=== PATIENT | female | born 1985 ===

== ENCOUNTER 2016-11-24 10:26 | Emergency (ER) | payer SELFPAY ==
--- NOTE | 2016-11-24 11:38 | UC ---
Throat Pain/Nasal Frandy HPI - HPI Summary HPI Summary: LAST NIGHT BEGAN HAVING SORE THROAT AND REDNESS. NO FEVER. NO COUGH. NO SINUS CONGESTION. NO RASH. NO ABDOMINAL PAIN. HAS HAD STREP THROAT SEVERAL TIMES IN THE PAST. - History of Current Complaint Hx Obtained From: Patient Hx Last Menstrual Period: 11/01/16 Onset/Duration: Gradual Onset, Lasting Hours, Still Present Severity: Mild Cough: None Associated Signs & Symptoms: Positive: Hoarseness. Negative: Sinus Discomfort, Nasal Discharge, Fever <Mann Wilkins - Last Filed: 11/24/16 11:35> <Yanira Montaño - Last Filed: 11/24/16 12:43> - History of Current Complaint Chief Complaint: UCRespiratory Stated Complaint: THROAT PAIN Time Seen by Provider: 11/24/16 11:12 PMH/Surg Hx/FS Hx/Imm Hx Previously Healthy: Yes - Surgical History Surgical History: None - Family History Known Family History: Negative: Respiratory Disease - Social History Occupation: Employed Full-time Lives: With Family Alcohol Use: Occasionally Substance Use Type: None Smoking Status (MU): Heavy Every Day Tobacco Smoker <FrankyMann - Last Filed: 11/24/16 11:35> Review of Systems Constitutional: Negative Skin: Negative Eyes: Negative ENT: Sore Throat Respiratory: Negative Cardiovascular: Negative Gastrointestinal: Negative Genitourinary: Negative Motor: Negative Neurovascular: Negative Musculoskeletal: Negative Neurological: Negative Psychological: Negative All Other Systems Reviewed And Are Negative: Yes <FrankyMann - Last Filed: 11/24/16 11:35> Physical Exam Triage Information Reviewed: Yes Appearance: Well-Appearing, No Pain Distress, Well-Nourished Vital Signs: Initial Vital Signs Temp 96.6 F 11/24/16 10:28 Pulse 103 11/24/16 10:28 Resp 18 11/24/16 10:28 BP 116/67 11/24/16 10:28 Pulse Ox 99 11/24/16 10:28 Vital Signs Reviewed: Yes Eye Exam: Normal ENT: Positive: Hearing grossly normal, Pharyngeal erythema, TMs normal Dental Exam: Normal Neck exam: Normal Neck: Positive: Supple, Nontender, No Lymphadenopathy Respiratory Exam: Normal Respiratory: Positive: Chest non-tender, Lungs clear, Normal breath sounds, No respiratory distress Cardiovascular Exam: Normal Cardiovascular: Positive: RRR, No Murmur, Pulses Normal Abdominal Exam: Normal Musculoskeletal Exam: Normal Musculoskeletal: Positive: Strength Intact, ROM Intact Neurological Exam: Normal Psychological Exam: Normal Skin Exam: Normal <Mann Wilkins - Last Filed: 11/24/16 11:35> Vital Signs: Initial Vital Signs Temp 96.6 F 11/24/16 10:28 Pulse 103 11/24/16 10:28 Resp 18 11/24/16 10:28 BP 116/67 11/24/16 10:28 Pulse Ox 99 11/24/16 10:28 <Yanira Montaño - Last Filed: 11/24/16 12:43> Throat Pain/Nasal Course/Dx - Differential Dx/Diagnosis Differential Diagnosis/HQI/PQRI: Pharyngitis, Tonsillitis, URI Provider Diagnoses: PHARYNGITIS <Mann Wilkins - Last Filed: 11/24/16 11:35> Discharge <Mann Wilkins - Last Filed: 11/24/16 11:35> <Yanira Montaño - Last Filed: 11/24/16 12:43> - Discharge Plan Condition: Stable Disposition: HOME Patient Education Materials: Pharyngitis (ED) Referrals: [facility] [Outside] No Primary Care Phys,NOPCP [Primary Care Provider] - Attestation Statement User Type: Provider - I was available for consult. This patient was seen by the GUSTAVO. The patient was not presented to, seen by, or examined by me. -Janie <Yanira Montaño - Last Filed: 11/24/16 12:43>
== END 2016-11-24 11:40 | disposition home or self-care (01) ==
LOC: UCEAST 10:26
DX: J02.9 Acute pharyngitis, unspecified (principal); F17.210 Nicotine dependence, cigarettes, uncomplicated
CPT/HCPCS: 87651; 99201; G0463

== ENCOUNTER 2017-03-28 14:29 | Emergency (ER) | payer OTHER ==
--- NOTE | 2017-03-28 14:35 | UC ---
Throat Pain/Nasal Frandy HPI - HPI Summary HPI Summary: 31 year old female presents with complains of sore throat x 2 days. - History of Current Complaint Stated Complaint: SORE THROAT Time Seen by Provider: 03/28/17 14:35 Hx Obtained From: Patient Hx Last Menstrual Period: 11/01/16 Onset/Duration: Sudden Onset Severity: Moderate Pain Scale Used: 0-10 Numeric - 4 - Allergies/Home Medications Allergies/Adverse Reactions: Allergies Allergy/AdvReac Type Severity Reaction Status Date / Time No Known Allergies Allergy Verified 03/28/17 14:43 Home Medications: Home Medications Ibuprofen TAB* [Advil TAB*] 400 mg PO Q6H PRN 03/28/17 [History Confirmed ] PMH/Surg Hx/FS Hx/Imm Hx Previously Healthy: Yes - Surgical History Surgical History: None - Family History Known Family History: Negative: Respiratory Disease - Social History Alcohol Use: Occasionally Substance Use Type: None Smoking Status (MU): Heavy Every Day Tobacco Smoker Review of Systems Constitutional: Negative Skin: Negative Eyes: Negative ENT: Sore Throat, Nasal Discharge, Sinus Congestion, Sinus Pain/Tenderness Respiratory: Negative Cardiovascular: Negative Gastrointestinal: Negative Genitourinary: Negative Motor: Negative Neurovascular: Negative Musculoskeletal: Negative Neurological: Negative Psychological: Negative All Other Systems Reviewed And Are Negative: Yes Physical Exam Triage Information Reviewed: Yes Vital Signs Reviewed: Yes Eye Exam: Normal ENT: Positive: Pharyngeal erythema, Nasal congestion, Nasal drainage Dental Exam: Normal Neck exam: Normal Neck: Positive: 1 Respiratory Exam: Normal Cardiovascular Exam: Normal Abdominal Exam: Normal Musculoskeletal Exam: Normal Neurological Exam: Normal Psychological Exam: Normal Skin Exam: Normal Throat Pain/Nasal Course/Dx - Differential Dx/Diagnosis Provider Diagnoses: allergic rhinitis. pharyngitis Discharge - Discharge Plan Condition: Stable Disposition: HOME Prescriptions: Amoxicillin PO (*) [Amoxicillin 875 MG (*)] 875 mg PO BID #14 tab LoraTADine TAB(NF) [Claritin 10 MG TAB(NF)] 10 mg PO DAILY #30 tab Magic M W2 Skyler/Maal/Nyst/Lido* 5 ml SWISH SPIT QID PRN #120 ml PRN Reason: Pain Patient Education Materials: Pharyngitis (ED), Allergic Rhinitis (ED) Referrals: No Primary Care Phys,NOPCP [Primary Care Provider] -
== END 2017-03-28 15:22 | disposition home or self-care (01) ==
LOC: UCEAST 14:29
DX: J30.9 Allergic rhinitis, unspecified (principal); F17.200 Nicotine dependence, unspecified, uncomplicated; J02.9 Acute pharyngitis, unspecified
CPT/HCPCS: 87651; 99212; G0463